=== PATIENT | female | born 1955 ===

== ENCOUNTER 2022-08-23 10:30 | Inpatient (IN) | payer OTHER ==
[~2022-08-23] VITALS: Ht 165.1 cm; Wt 94.3 kg
[2022-08-23] MEDS ORDERED: NABUMETONE750 MG PO (11:50)
[2022-08-23] MEDS ORDERED: HORIZANT600 MG PO (11:51)
[2022-08-23] MEDS ORDERED: METFORMIN HCL500 M3 PO (11:51)
[2022-08-23] MEDS ORDERED: LIPITOR20 MG PO (11:51)
[2022-08-23] MEDS ORDERED: PROTECT PLUS S1 EACH PO (11:52)
[2022-08-27] MEDS ORDERED: PERCOCET 5-3251 EACH PO (07:39)
[2022-08-27] MEDS ORDERED: MEDROLPACK PO (07:40)
[2022-08-27] MEDS ORDERED: COLACE100 MG PO (07:41)
[2022-08-27] MEDS ORDERED: AMOX-CLAV 875-1 EACH PO (07:41)
[2022-08-27] MEDS ORDERED: NEURONTIN800 MG PO (07:42)
== END 2022-08-29 12:45 | disposition home or self-care (01) | DRG 455 ==
LOC: SURG 08-27 07:00 → O/R 08-27 07:19 → SURG 08-27 10:30 → PED 08-27 10:40
PROVIDERS: ADMIT Orthopaedic Surgery Orthopaedic Surgery of the Spine; ATTEND Orthopaedic Surgery Orthopaedic Surgery of the Spine
PROC: 0SG0071 Fusion of Lumbar Vertebral Joint with Autologous Tissue Substitute, Posterior Approach, Posterior Column, Open Approach (ICD-10-PCS; 2022-08-27)
PROC: 0ST20ZZ Resection of Lumbar Vertebral Disc, Open Approach (ICD-10-PCS; 2022-08-27)
PROC: 0QB30ZZ Excision of Left Pelvic Bone, Open Approach (ICD-10-PCS; 2022-08-27)
PROC: 07DR0ZZ Extraction of Iliac Bone Marrow, Open Approach (ICD-10-PCS; 2022-08-27)
PROC: XRGB0R7 Fusion of Lumbar Vertebral Joint using Custom-Made Anatomically Designed Interbody Fusion Device, Open Approach, New Technology Group 7 (ICD-10-PCS; principal; 2022-08-27 07:00)
DX: M43.16 Spondylolisthesis, lumbar region (principal); M48.062 Spinal stenosis, lumbar region with neurogenic claudication; E78.5 Hyperlipidemia, unspecified; J45.909 Unspecified asthma, uncomplicated; E11.9 Type 2 diabetes mellitus without complications; Z79.84 Long term (current) use of oral hypoglycemic drugs; R26.89 Other abnormalities of gait and mobility; D64.9 Anemia, unspecified